=== PATIENT | male | born 1935 | race Two or more races ===

== ENCOUNTER 2021-10-14 11:26 | Inpatient (IN) | payer OTHER ==
[~2021-10-14] VITALS: Ht 167.6 cm; Wt 72.6 kg
[2021-10-14] MEDS ORDERED: PLAVIX75 MG PO (13:31)
[2021-10-14] MEDS ORDERED: CLONAZEPAM0.5 MG PO (13:31)
[2021-10-14] MEDS ORDERED: SERTRALINE HCL25 MG PO (13:31)
[2021-10-14] MEDS ORDERED: CANDESARTAN CILE8 MG PO (13:32)
[2021-10-14] MEDS ORDERED: ARICEPT10 MG PO (13:32)
[2021-10-14] MEDS ORDERED: NAMENDA XR28 MG PO (13:32)
[2021-10-14] MEDS ORDERED: TOPROL XL25 M1 PO (13:32)
[2021-10-14] MEDS ORDERED: LUMIGAN2.5 M1 OP (13:33)
[2021-10-18] MEDS ORDERED: VITAMIN C1000 MG (09:13)
[2021-10-18] MEDS ORDERED: FAMOTIDINE20 MG (09:13)
[2021-10-18] MEDS ORDERED: AZOPT10 ML (09:14)
[2021-10-18] MEDS ORDERED: ATORVASTATIN CA40 MG (09:14)
== END 2021-10-22 13:49 | disposition home or self-care (01) | DRG 331 ==
LOC: O/R 10-18 06:11 → SURG 10-18 06:11 → SURH 10-18 07:00 → SURG 10-18 15:01
PROVIDERS: ADMIT Colon & Rectal Surgery; ATTEND Colon & Rectal Surgery
PROC: 0DBL4ZZ Excision of Transverse Colon, Percutaneous Endoscopic Approach (ICD-10-PCS; 2021-10-18)
PROC: 0WQF4ZZ Repair Abdominal Wall, Percutaneous Endoscopic Approach (ICD-10-PCS; 2021-10-18)
PROC: 07BB4ZZ Excision of Mesenteric Lymphatic, Percutaneous Endoscopic Approach (ICD-10-PCS; 2021-10-18)
PROC: 4A1BXSH Monitoring of Gastrointestinal Vascular Perfusion using Indocyanine Green Dye, External Approach (ICD-10-PCS; 2021-10-18)
PROC: 0DTF4ZZ Resection of Right Large Intestine, Percutaneous Endoscopic Approach (ICD-10-PCS; principal; 2021-10-18 07:00)
DX: C18.3 Malignant neoplasm of hepatic flexure (principal); R59.0 Localized enlarged lymph nodes; K43.9 Ventral hernia without obstruction or gangrene; I10 Essential (primary) hypertension; F02.80 Dementia in other diseases classified elsewhere, unspecified severity, without behavioral disturbance, psychotic disturbance, mood disturbance, and anxiety; D64.9 Anemia, unspecified